=== PATIENT | male | born 2005 | race Caucasian/White ===

== ENCOUNTER 2024-01-31 02:31 | Inpatient (IN) | payer SELFPAY ==
[2024-01-31 03:40] VITALS: BMI 27.0
[2024-01-31] MEDS ORDERED: Ondansetron PF 4 MG/2 ML Vial IVP PRN (04:25)
[2024-01-31] MEDS: Sodium Chloride 0.9% 1,000 ML IV SCH (05:12)
[2024-01-31] MEDS: Piperacillin/Tazobactam 3.375 GM in Sodium Chloride 0.9% 100 ML IVPB SCH ×2 (05:12→12:34)
[2024-01-31] MEDS ORDERED: Piperacillin/Tazobactam 2.25 GM in Sodium Chloride 0.9% 100 ML IVPB SCH (06:00)
[2024-01-31] MEDS ORDERED: EPINEPHrine 1 MG/ML VIAL ONE (09:51)
[2024-01-31] MEDS ORDERED: Bupivacaine 0.25% HCL 30 ML VIAL ONE (09:51)
[2024-01-31] MEDS ORDERED: PROPOFOL 20 ML ONE (10:02)
[2024-01-31] MEDS ORDERED: fentaNYL PF 100 MCG/2 ML SYRINGE ONE (10:02)
[2024-01-31] MEDS ORDERED: Rocuronium Bromide 10 MG/ML (10ML VIAL) ONE (10:02)
[2024-01-31] MEDS ORDERED: Midazolam HCl 2 mg/2 ml Vial ONE (10:02)
[2024-01-31] MEDS ORDERED: Glycopyrrolate 0.2 MG/ML 5 ML SYRINGE ONE (10:04)
[2024-01-31] MEDS ORDERED: Dexamethasone 20 MG/5 ML VIAL ONE (10:04)
[2024-01-31] MEDS ORDERED: NEOSTIGMINE 3 MG/3 ML SYR 3 MG/3 ML SYRINGE ONE (10:04)
[2024-01-31] MEDS ORDERED: Ondansetron PF 4 MG/2 ML Vial ONE (10:04)
[2024-01-31] MEDS ORDERED: HYDROcodone/Acetaminophen 7.5/325 mg Tablet PO PRN (11:13)
[2024-01-31] MEDS ORDERED: fentaNYL 50 mcg/mL 1 mL Vial ONE (11:22)
[2024-01-31] MEDS ORDERED: Ketorolac Tromethamine 30 MG (1 mL) VIAL ONE (11:22)
[2024-01-31] MEDS: Morphine 2 MG/ML VIAL SLOW IVP PRN (12:34)
[2024-01-31 18:45] VITALS: BP 117/73; TEMP 97.9
== END 2024-01-31 18:11 | disposition home or self-care (01) | DRG 399 ==
LOC: MSONC 02:48 → OBSVTOIN 04:25
PROVIDERS: ADMIT Surgery; ATTEND Surgery
PROC: 0DTJ4ZZ Resection of Appendix, Percutaneous Endoscopic Approach (ICD-10-PCS; principal; 2024-01-31)
PROC: 3E033XZ Introduction of Vasopressor into Peripheral Vein, Percutaneous Approach (ICD-10-PCS; 2024-01-31)
DX: K35.80 Unspecified acute appendicitis (principal); F90.9 Attention-deficit hyperactivity disorder, unspecified type; Z79.899 Other long term (current) drug therapy
CPT/HCPCS: A4314; A4649; C1776; J0171; J0665; J1100; J1885; J2250; J2272; J2405; J2543; J2704; J3010; J3490; J7050